=== PATIENT | male | born 1990 | race Two or more races ===

== ENCOUNTER 2024-11-07 08:27 | Emergency (ER) | payer OTHER ==
[~2024-11-07] VITALS: Ht 180.3 cm; Wt 112.5 kg
[2024-11-07] MEDS ORDERED: TDAP [DIPH/PERTUSSIS/TET] 0.5 ML VIAL IM ONE (09:56)
[2024-11-07] MEDS: RABIES VACCINE (PCEC)/PF 1 EA KIT IM ONE (10:00)
[2024-11-07] MEDS: TDAP [DIPH/PERTUSSIS/TET] 0.5 ML VIAL IM ONE (10:00)
[2024-11-07] MEDS ORDERED: RABIES VACCINE (PCEC)/PF 1 EA KIT IM ONE (10:36)
[2024-11-07] MEDS: BACI/NEOM/POLY B OINT PKT 1 UDPKT PACKET TP ONE (10:48)
[2024-11-07] MEDS ORDERED: AMOX-430 PO (11:42)
[2024-11-07] MEDS: RABIES IMMUNE GLOBULIN/PF 150 UNIT/ML VIAL IM ONE (12:00)
[2024-11-07 12:45] VITALS: BP 109/74; TEMP 98.1; O2SAT 100
== END 2024-11-07 12:46 | disposition home or self-care (01) ==
LOC: ER 08:42
DX: S61.451A Open bite of right hand, initial encounter (principal); W64.XXXA Exposure to other animate mechanical forces, initial encounter; Y93.89 Activity, other specified; Y92.219 Unspecified school as the place of occurrence of the external cause; Y99.8 Other external cause status
CPT/HCPCS: 90375; 90715

== ENCOUNTER 2024-11-10 08:02 | Emergency (ER) | payer OTHER ==
[~2024-11-10] VITALS: Ht 182.9 cm; Wt 112.0 kg
[2024-11-10 08:12] VITALS: BP 130/80; TEMP 98.5
[2024-11-10] MEDS ORDERED: RABIES VACCINE (PCEC)/PF 1 EA KIT IM ONE (08:19)
[2024-11-10] MEDS: RABIES VACCINE (PCEC)/PF 1 EA KIT IM ONE (08:25)
[2024-11-10 08:27] VITALS: O2SAT 100
== END 2024-11-10 08:29 | disposition home or self-care (01) ==
LOC: ER 08:02
DX: Z23 Encounter for immunization (principal)

== ENCOUNTER → 2024-11-10 | Emergency (ER) | payer OTHER ==
[~2024-11-10] MED LIST: AMOX-430 PO
== END ==
LOC: ER 05:55
DX: Z23 Encounter for immunization (principal); Z53.21 Procedure and treatment not carried out due to patient leaving prior to being seen by health care provider

== ENCOUNTER 2024-11-18 14:24 | Emergency (ER) | payer OTHER ==
[~2024-11-18] VITALS: Ht 182.9 cm; Wt 111.6 kg
[2024-11-18 14:50] VITALS: BP 131/79; TEMP 98.3
[2024-11-18] MEDS ORDERED: RABIES VACCINE (PCEC)/PF 1 EA KIT IM ONE (15:05)
[2024-11-18] MEDS: RABIES VACCINE (PCEC)/PF 1 EA KIT IM ONE (15:15)
[2024-11-18 16:32] VITALS: O2SAT 99
== END 2024-11-18 16:32 | disposition home or self-care (01) ==
LOC: ER 14:56
DX: S61.451D Open bite of right hand, subsequent encounter (principal); Z23 Encounter for immunization; W54.0XXD Bitten by dog, subsequent encounter

== ENCOUNTER 2024-12-02 08:21 | Emergency (ER) | payer OTHER ==
[~2024-12-02] VITALS: Ht 182.9 cm; Wt 111.6 kg
[2024-12-02 08:22] VITALS: BP 123/75; TEMP 98.4
[2024-12-02] MEDS ORDERED: RABIES VACCINE (PCEC)/PF 1 EA KIT IM ONE (08:31)
[2024-12-02 08:37] VITALS: O2SAT 99
[2024-12-02] MEDS: RABIES VACCINE (PCEC)/PF 1 EA KIT IM ONE (08:40)
== END 2024-12-02 08:38 | disposition home or self-care (01) ==
LOC: ER 08:23
DX: S61.431D Puncture wound without foreign body of right hand, subsequent encounter (principal); Z23 Encounter for immunization; Z60.2 Problems related to living alone; W64.XXXD Exposure to other animate mechanical forces, subsequent encounter